=== PATIENT | female | born 2000 | race Caucasian/White ===

== ENCOUNTER 2025-01-28 14:15 | Outpatient (RCR) | payer BC, SELFPAY | END 2025-03-04 13:41 | disposition home or self-care (01) | PROVIDERS: Visit Provider Family Medicine | DX: M25.521 Pain in right elbow (principal); M25.551 Pain in right hip; Z51.89 Encounter for other specified aftercare | CPT/HCPCS: 97035; 97110; 97112; 97140; 97161; 97165; X5282 ==